=== PATIENT | female | born 1990 | race Hispanic/Latino ===

== ENCOUNTER 2019-08-10 16:34 | Emergency (ER) | payer MEDICAID | END 2019-08-10 18:07 | disposition home or self-care (01) | LOC: EDH 16:34 | DX: O9A.212 Injury, poisoning and certain other consequences of external causes complicating pregnancy, second trimester (principal); S01.531A Puncture wound without foreign body of lip, initial encounter; Z3A.23 23 weeks gestation of pregnancy; W54.0XXA Bitten by dog, initial encounter; Y93.89 Activity, other specified; Y92.89 Other specified places as the place of occurrence of the external cause; Y99.8 Other external cause status ==